=== PATIENT | male | born 1945 | race Caucasian/White ===

== ENCOUNTER 2022-01-30 17:34 | Emergency (ER) | payer OTHER, MEDICARE ==
[2022-01-30 17:41] VITALS: BP 160/89; PULSE 82; RESP 82; TEMP 97.8
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
[2022-01-30 18:17] LABS: Basophils # (A) 0.1 k/uL (0-0.2); Basophils % (A) 1 %; Eosinophils # (A) 0.4 k/uL (0-0.7); Eosinophils % (A) 4 %; HCT 45.5 % (39.0-53.0); Lymphocytes # (A) 1.6 k/uL (1.0-4.8); Lymphocytes % (A) 17 %; MCH 31.5 pg (25.0-35.0); MCHC 33.1 g/dL (31.0-37.0); MCV 95.2 fL (80.0-100.0); Monocytes # (A) 0.7 k/uL (0-1.0); Monocytes % (A) 8 %; Neutrophils # (A) 6.4 k/uL (1.3-7.7); Neutrophils % (A) 69 %; Platelet Count 251 k/uL (150-450); RBC 4.78 m/uL (4.30-5.90); WBC 9.4 k/uL (3.8-10.6)
[2022-01-30 18:28] LABS: ALT 24 U/L (4-49); AST 27 U/L (17-59); African American GFR (CKD) >90 (>60 ml/min/1.73 sqM); Albumin 4.4 g/dL (3.5-5.0); Alkaline Phosphatase 49 U/L (38-126); Anion Gap 8 mmol/L; Blood Urea Nitrogen 16 mg/dL (9-20); Calcium 9.3 mg/dL (8.4-10.2); Carbon Dioxide 25 mmol/L (22-30); Chloride 105 mmol/L (98-107); Glucose 127 mg/dL (74-99); Non-African American GFR(CKD) 79 (>60 ml/min/1.73 sqM); Potassium 3.9 mmol/L (3.5-5.1); Sodium 138 mmol/L (137-145); Total Bilirubin 0.7 mg/dL (0.2-1.3); Total Protein 6.9 g/dL (6.3-8.2)
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
[2022-01-30] MEDS ORDERED: KETOROLAC 15 MG/ML 1 ML VIAL IVP STA (18:50)
--- NOTE | 2022-01-30 19:22 | XR ---
EXAMINATION TYPE: XR chest 1V portable DATE OF EXAM: 01/30/2022 COMPARISON: NONE HISTORY: Pain TECHNIQUE: Single view FINDINGS: Heart is normal. Lungs are clear of consolidation. There are no hilar masses. Costophrenic angles are fairly clear. There is minimal pleural thickening lateral right lung base. Bony thorax arpit ears intact. IMPRESSION: No active cardiopulmonary disease. Minimal pleural scarring lateral right lung base
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
== END 2022-01-30 19:48 | disposition home or self-care (01) ==
LOC: EC 17:34
DX: M54.2 Cervicalgia (principal); M25.551 Pain in right hip; V43.52XA Car driver injured in collision with other type car in traffic accident, initial encounter; Y92.89 Other specified places as the place of occurrence of the external cause
CPT/HCPCS: 36415; 80053; 84484; 85025; 72170; 71045; 72125; 70450; 99284; 96374; J1885

== ENCOUNTER 2022-12-17 09:59 | Emergency (ER) | payer OTHER, MEDICARE ==
[2022-12-17] MEDS ORDERED: ACETAMINOPHEN TAB 500 MG TAB PO STA ×2 (10:36→11:00)
[2022-12-17] MEDS ORDERED: ONDANSETRON 4 MG/2 ML VIAL IVP STA (11:00)
[2022-12-17] MEDS ORDERED: diphenhydrAMINE 50 MG/ML 1 ML VIAL IVP STA (11:00)
[2022-12-17] MEDS ORDERED: SODIUM CHLORIDE 0.9% 1,000 ML IV STA (11:00)
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
[2022-12-17] MEDS ORDERED: ACET/COD 300 MG/30 MG STARTER PACK 6 TAB BTL PO STA (11:57)
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
[2022-12-17 13:02] VITALS: BP 155/87; PULSE 72; RESP 16; TEMP 97.9
== END 2022-12-17 13:02 | disposition home or self-care (01) ==
LOC: EC 09:59
DX: S09.90XA Unspecified injury of head, initial encounter (principal); G44.309 Post-traumatic headache, unspecified, not intractable; W22.09XA Striking against other stationary object, initial encounter
CPT/HCPCS: 99284 ×2; 96374 ×2; 96375 ×2; 96361 ×2; 70450; J1200; J2405

== ENCOUNTER 2023-12-12 15:39 | Observation (INO) | payer OTHER, MEDICARE ==
--- NOTE | 2023-12-12 16:03 | ED ---
Dizziness HPI - General Chief Complaint: Dizziness Stated Complaint: high b/p Time Seen by Provider: 12/12/23 15:53 Source: patient, RN notes reviewed, old records reviewed Mode of arrival: wheelchair Limitations: no limitations - History of Present Illness Initial Comments: This 78-year-old male to the ER for evaluation patient the [facility] for evaluation of dizziness significant dizziness for about a week room spinning lightheaded weak on his feet feels near syncopal with nausea vomiting. Patient was told aided in her ear infection a week ago started on antibiotics with no change MD Complaint: dizziness, lightheadedness, near syncope, other (He was get a pass out today) -: week(s) Timing: gradual onset Description: sense of movement, "room spinning", lightheadedness, nausea, near- syncope History of Same: No History of Trauma: No Severity: severe Improves With: nothing Worsens With: nothing Associated Symptoms: denies other symptoms - Related Data Home Medications Medication Instructions Recorded Confirmed Diclofenac Sodium [Voltaren] 50 mg PO HS 12/12/23 12/12/23 Meclizine [Antivert] 12.5 mg PO TID PRN 12/12/23 12/12/23 Simvastatin [Zocor] 20 mg PO HS 12/12/23 12/12/23 Timolol 0.5% Ophth Soln [Timoptic 1 drop LEFT EYE BID 12/12/23 12/12/23 0.5% Ophth Soln] predniSONE [Deltasone] 60 mg PO DAILY 12/12/23 12/12/23 Previous Rx's Medication Instructions Recorded Ibuprofen 800 mg PO Q8H PRN 10 Days #30 tab 01/30/22 Allergies Allergy/AdvReac Type Severity Reaction Status Date / Time No Known Allergies Allergy Verified 12/12/23 15:43 Review of Systems ROS Statement: Those systems with pertinent positive or pertinent negative responses have been documented in the HPI. ROS Other: All systems not noted in ROS Statement are negative. Past Medical History Past Medical History: Hyperlipidemia History of Any Multi-Drug Resistant Organisms: None Reported Past Surgical History: Hernia Repair, Orthopedic Surgery Past Psychological History: No Psychological Hx Reported Smoking Status: Never smoker Past Alcohol Use History: None Reported Past Drug Use History: None Reported General Exam - General Exam Comments Initial Comments: NIH of 0 Limitations: no limitations General appearance: alert, in no apparent distress Head exam: Present: atraumatic, normocephalic, normal inspection Eye exam: Present: normal appearance, PERRL, EOMI. Absent: scleral icterus, conjunctival injection, periorbital swelling ENT exam: Present: normal exam, mucous membranes moist Neck exam: Present: normal inspection. Absent: tenderness, meningismus, lymphadenopathy Respiratory exam: Present: normal lung sounds bilaterally. Absent: respiratory distress, wheezes, rales, rhonchi, stridor Cardiovascular Exam: Present: regular rate, normal rhythm, normal heart sounds. Absent: systolic murmur, diastolic murmur, rubs, gallop, clicks GI/Abdominal exam: Present: soft, normal bowel sounds. Absent: distended, tenderness, guarding, rebound, rigid Extremities exam: Present: normal inspection, full ROM, normal capillary refill. Absent: tenderness, pedal edema, joint swelling, calf tenderness Back exam: Present: normal inspection Neurological exam: Present: alert, oriented X3, CN II-XII intact Psychiatric exam: Present: normal affect, normal mood Skin exam: Present: warm, dry, intact, normal color. Absent: rash Course Vital Signs 12/12/23 12/12/23 12/12/23 15:41 15:51 15:56 Temperature 97.8 F Pulse Rate 73 90 77 Respiratory 18 20 16 Rate Blood Pressure 173/97 187/112 187/112 O2 Sat by Pulse 91 L 94 L 94 L Oximetry 12/12/23 12/12/23 12/12/23 16:43 17:00 17:24 Temperature Pulse Rate 82 68 80 Respiratory 20 16 20 Rate Blood Pressure 167/97 192/114 178/101 O2 Sat by Pulse 95 98 94 L Oximetry - Reevaluation(s) Reevaluation #1: 12/12/23 17:28 Record is reviewed Reevaluation #2: 12/12/23 17:28 Symptoms are unchanged Reevaluation #3: 12/12/23 17:28 Patient informed of results and questions answered Reevaluation #4: Was pt. sent in by a medical professional or institution (, PA, SUPERVISOR KNITTING, urgent care, hospital, or snf...) When possible be specific @ -no Did you speak to anyone other than the patient for history (EMS, parent, family, police, friend...)? What history was obtained from this source @ -no Did you review nursing and triage notes (agree or disagree)? Why? @ -agree Are old charts reviewed (outside hosp., previous admission, EMS record, old EKG, old radiological studies, urgent care reports/EKG's, snf records)? Report findings @ -yes Differential Diagnosis (chest pain, altered mental status, abdominal pain women, abdominal pain men, vaginal bleeding, weakness, fever, dyspnea, syncope, headache, dizziness, GI bleed, back pain, seizure, CVA, palpatations, mental health, musculoskeletal)? @ -prior EKG interpreted by me (3pts min.). @ -yes X-rays interpreted by me (1pt min.). @ -yes negative for acute disease CT interpreted by me (1pt min.). @ -no U/S interpreted by me (1pt. min.). @ -no What testing was considered but not performed or refused? (CT, X-rays, U/S, labs)? Why? @ -none What meds were considered but not given or refused? Why? @ -none Did you discuss the management of the patient with other professionals (tunde mendoza i.e. , PA, SUPERVISOR K[employer]ITTING, lab, RT, psych nurse, delinquency prevention social worker, e commerce architect, teacher, chief investment officer, supervisor case loading)? Give summary @ -no Was smoking cessation discussed for >3mins.? @ -no Was critical care preformed (if so, how long)? @ -no Were there social determinants of health that impacted care today? How? (Homelessness, low income, unemployed, alcoholism, drug addiction, transportation, low edu. Level, literacy, decrease access to med. care, long-term, rehab)? @ -none Was there de-escalation of care discussed even if they declined (Discuss DNR or withdrawal of care, Hospice)? DNR status @ -no What co-morbidities impacted this encounter? (DM, HTN, Smoking, COPD, CAD, Cancer, CVA, ARF, Chemo, Hep., AIDS, mental health diagnosis, sleep apnea, morbid obesity)? @ -none Was patient admitted / discharged? Hospital course, mention meds given and route, prescriptions, significant lab abnormalities, going to OR and other pertinent info. @ - Undiagnosed new problem with uncertain prognosis? @ -no Drug Therapy requiring intensive monitoring for toxicity (Heparin, Nitro, Insulin, Cardizem)? @ -no Were any procedures done? @ -no Diagnosis/symptom? @ - Acute, or Chronic, or Acute on Chronic? @ -Acute Uncomplicated (without systemic symptoms) or Complicated (systemic symptoms)? @ -Complicated Side effects of treatment? @ -no Exacerbation, Progression, or Severe Exacerbation? @ -exacerbation Poses a threat to life or bodily function? How? (Chest pain, USA, VT, pneumonia, PE, COPD, DKA, ARF, appy, cholecystitis, CVA, Diverticulitis, Homicidal, Suicidal, threat to staff... and all critical care pts) @ -yes Reevaluation #5: Differential CVA Ischemic stroke, hemorrhagic stroke, brain tumor, atypical migraine, Wernicke's encephalopathy, seizure, multiple sclerosis, meningitis, encephalitis, hypoglycemia, Guillain-Tejeda, electrolytes disturbance, myasthenia gravis.... This is not meant to be an all-inclusive list - Consultations Consultation #1: Spoke with sound who agrees to admit this patient EKG Findings - EKG Comments: EKG Findings:: EKG is sinus 87 OK 118 QRS 88 QTc 379 - EKG Results: EKG: interpreted by JOSÉ LUIS Medical Decision Making - Lab Data Result diagrams: 12/12/23 16:01 12/12/23 16:01 Lab Results 12/12/23 12/12/23 12/12/23 Range/Units 16:01 16:01 16:01 WBC 10.8 H (3.8-10.6) k/uL RBC 4.66 (4.30-5.90) m/uL Hgb 14.7 (13.0-17.5) gm/dL Hct 44.5 (39.0-53.0) % MCV 95.6 (80.0-100.0) fL MCH 31.5 (25.0-35.0) pg MCHC 33.0 (31.0-37.0) g/dL RDW 12.6 (11.5-15.5) % Plt Count 272 (150-450) k/uL MPV 7.2 Neutrophils % 84 % Lymphocytes % 10 % Monocytes % 4 % Eosinophils % 1 % Basophils % 0 % Neutrophils # 9.1 H (1.3-7.7) k/uL Lymphocytes # 1.0 (1.0-4.8) k/uL Monocytes # 0.5 (0-1.0) k/uL Eosinophils # 0.1 (0-0.7) k/uL Basophils # 0.0 (0-0.2) k/uL PT 10.5 (10.0-12.5) sec INR 1.0 (<1.2) APTT 20.4 L (22.0-30.0) sec Sodium 135 L (137-145) mmol/L Potassium 4.6 (3.5-5.1) mmol/L Chloride 105 (98-107) mmol/L Carbon Dioxide 24 (22-30) mmol/L Anion Gap 6 mmol/L BUN 22 H (9-20) mg/dL Creatinine 0.77 (0.66-1.25) mg/dL Est GFR (CKD-EPI)AfAm >90 (>60 ml/min/1.73 sqM) Est GFR (CKD-EPI)NonAf 86 (>60 ml/min/1.73 sqM) Glucose 145 H (74-99) mg/dL Plasma Lactic Acid Del (0.7-2.0) mmol/L Calcium 9.6 (8.4-10.2) mg/dL Phosphorus 3.5 (2.5-4.5) mg/dL Magnesium 2.0 (1.6-2.3) mg/dL Total Bilirubin 0.8 (0.2-1.3) mg/dL AST 25 (17-59) U/L ALT 31 (4-49) U/L Alkaline Phosphatase 54 (38-126) U/L Troponin I (0.000-0.034) ng/mL Total Protein 6.7 (6.3-8.2) g/dL Albumin 4.3 (3.5-5.0) g/dL 12/12/23 12/12/23 Range/Units 16:01 16:01 WBC (3.8-10.6) k/uL RBC (4.30-5.90) m/uL Hgb (13.0-17.5) gm/dL Hct (39.0-53.0) % MCV (80.0-100.0) fL MCH (25.0-35.0) pg MCHC (31.0-37.0) g/dL RDW (11.5-15.5) % Plt Count (150-450) k/uL MPV Neutrophils % % Lymphocytes % % Monocytes % % Eosinophils % % Basophils % % Neutrophils # (1.3-7.7) k/uL Lymphocytes # (1.0-4.8) k/uL Monocytes # (0-1.0) k/uL Eosinophils # (0-0.7) k/uL Basophils # (0-0.2) k/uL PT (10.0-12.5) sec INR (<1.2) APTT (22.0-30.0) sec Sodium (137-145) mmol/L Potassium (3.5-5.1) mmol/L Chloride (98-107) mmol/L Carbon Dioxide (22-30) mmol/L Anion Gap mmol/L BUN (9-20) mg/dL Creatinine (0.66-1.25) mg/dL Est GFR (CKD-EPI)AfAm (>60 ml/min/1.73 sqM) Est GFR (CKD-EPI)NonAf (>60 ml/min/1.73 sqM) Glucose (74-99) mg/dL Plasma Lactic Acid Del 1.6 (0.7-2.0) mmol/L Calcium (8.4-10.2) mg/dL Phosphorus (2.5-4.5) mg/dL Magnesium (1.6-2.3) mg/dL Total Bilirubin (0.2-1.3) mg/dL AST (17-59) U/L ALT (4-49) U/L Alkaline Phosphatase (38-126) U/L Troponin I <0.012 (0.000-0.034) ng/mL Total Protein (6.3-8.2) g/dL Albumin (3.5-5.0) g/dL Critical Care Time Critical Care Time: Yes Total Critical Care Time: 31 Disposition Clinical Impression: Dehydration, Dizziness, Weakness, Hypertension, CVA (cerebral vascular accident), Hypertensive emergency Disposition: ADMITTED IP TO THIS HOSP Condition: Fair Referrals: [facility],Clinic [Primary Care Provider] - 1-2 days Time of Disposition: 17:30
[2023-12-12] MEDS: SODIUM CHLORIDE 0.9% 1,000 ML IV STA (16:05)
[2023-12-12 16:17] LABS: Basophils % (A) 0 %; Eosinophils # (A) 0.1 k/uL (0-0.7); Eosinophils % (A) 1 %; HCT 44.5 % (39.0-53.0); HGB 14.7 gm/dL (13.0-17.5); Lymphocytes % (A) 10 %; MCH 31.5 pg (25.0-35.0); MCV 95.6 fL (80.0-100.0); Mean Platelet Volume 7.2; Monocytes # (A) 0.5 k/uL (0-1.0); Monocytes % (A) 4 %; Neutrophils # (A) 9.1 k/uL (1.3-7.7); Neutrophils % (A) 84 %; Platelet Count 272 k/uL (150-450); RBC 4.66 m/uL (4.30-5.90); RDW 12.6 % (11.5-15.5); WBC 10.8 k/uL (3.8-10.6)
[2023-12-12 16:28] LABS: ALT 31 U/L (4-49); AST 25 U/L (17-59); African American GFR (CKD) >90 (>60 ml/min/1.73 sqM); Albumin 4.3 g/dL (3.5-5.0); Alkaline Phosphatase 54 U/L (38-126); Anion Gap 6 mmol/L; Blood Urea Nitrogen 22 mg/dL (9-20); Calcium 9.6 mg/dL (8.4-10.2); Carbon Dioxide 24 mmol/L (22-30); Chloride 105 mmol/L (98-107); Glucose 145 mg/dL (74-99); Non-African American GFR(CKD) 86 (>60 ml/min/1.73 sqM); Phosphorus 3.5 mg/dL (2.5-4.5); Potassium 4.6 mmol/L (3.5-5.1); Sodium 135 mmol/L (137-145); Total Bilirubin 0.8 mg/dL (0.2-1.3); Total Protein 6.7 g/dL (6.3-8.2)
[2023-12-12 16:40] LABS: Prothrombin Time 10.5 sec (10.0-12.5)
[2023-12-12 16:46] LABS: Partial Thromboplastin Time 20.4 sec (22.0-30.0)
--- NOTE | 2023-12-12 17:23 | CT ---
EXAMINATION TYPE: CT brain wo con DATE OF EXAM: 12/12/2023 HISTORY: htn, dizziness CT DLP: 1146.6 mGycm. Automated Exposure Control for Dose Reduction was Utilized. TECHNIQUE: CT scan of the head is performed without contrast. COMPARISON: CT 12/17/2022 FINDINGS: There is no skull fracture or intracranial hemorrhage. No mass or mass effect or definite new attenua tion defect. No acute extra-axial findings. 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 Paranasal sinuses and middle ear cavities and mastoid sinus air cells are clear. Orbits are unremarkable. IMPRESSION: No acute process.
[2023-12-12] MEDS: ASPIRIN 325 MG TAB PO STA (17:38)
[2023-12-12] MEDS: SODIUM CHLORIDE 0.9% 1,000 ML IV SCH (17:38)
--- NOTE | 2023-12-12 18:03 | CT ---
EXAMINATION TYPE: CT angio head neck DATE OF EXAM: 12/12/2023 HISTORY: htn, dizziness COMPARISON: CT brain without contrast 12/12/2023 CT DLP: 397.5 mGycm. Automated Exposure Control for Dose Reduction was Utilized. TECHNIQUE: CTA scan of the head and neck is performed without and with IV Contrast, patient injected with 65cc mL of Isovue 370, axial images are obtained, coronal and sagittal reformatted images are r eviewed. 3D reconstructed images are created on an independent workstation and reviewed. FINDINGS: CTA NECK: The bilateral carotid and vertebral are serial systems are widely patent without hemodynami shivani significant stenosis, or dissection. Dolichoectasia of the posterior arterial circulation is re demonstrated. Venous structures are widely patent. No nonvascular acute incidental findings, but mult ilevel advanced cervical spondylosis changes are noted. CTA BRAIN: The anterior and posterior arterial circulations are widely patent. There is no hemodynami shivani significance stenosis, aneurysm, dissection, or other abnormality. Dural venous sinuses are wid jennifer patent. No nonvascular acute incidental findings. IMPRESSION: No significant vascular abnormality is seen. NASCET criteria was used in interpretation of this exam?
[2023-12-12 18:06] LABS: Appearance,Urine Clear (Clear); Bilirubin,Urine Negative (Negative); Blood,Urine Negative (Negative); Color,Urine Colorless; Glucose,Urine (UA) Negative (Negative); Ketones,Urine Negative (Negative); Leukocyte Esterase,Urine Negative (Negative); Nitrite,Urine Negative (Negative); PH, Urine 7.5 (5.0-8.0); Protein,Urine Negative (Negative); Specific Gravity,Urine 1.017 (1.001-1.035); Urobilinogen,Urine <2.0 mg/dL (<2.0)
[2023-12-12] MEDS: LABETALOL 5 MG/ML VIAL MDV IVP STA ×2 (18:20→20:47)
[2023-12-13] MEDS ORDERED: MECLIZINE 12.5 MG TAB PO PRN (04:05)
--- NOTE | 2023-12-13 04:31 | P.HPIM ---
History of Present Illness H&P Date: 12/12/23 Chief Complaint: Dizziness 78-year-old male with hyperlipidemia Patient coming in for evaluation of near syncope increased dizziness lightheadedness and vertigo he reports that he has been told possible Mnire's disease in the past, however today his symptoms were getting worse associated with nausea vomiting he checked his blood pressure and found it elevated in the 200 range systolic blood pressure with some numbness in his right hand for which she decided to come in for evaluation He denies any headache chest pain trouble breathing fevers chills coughing sore throat denies any history of stroke denies any history of seizures Patient denies tobacco smoking illicit drugs or heavy alcohol review of systems Pertinent positives as noted in HPI. All other systems were reviewed and are negative on exam Constitutional: No acute distress, conversant, pleasant Eyes: Anicteric sclerae, moist conjunctiva, Pupils equal round reactive to light ENMT: NC/AT Oropharynx clear, no erythema, or exudates Neck: Supple, no masses, or JVD No carotid bruits No thyromegaly Lungs: Clear to auscultation Clear to percussion Normal respiratory effort, no accessory muscle use Cardiovascular: Heart regular in rate and rhythm, No murmurs, gallops, or rubs No peripheral edema Abdominal: Soft Nontender, no guarding, rebound or rigidity Abdomen moving with respiration Normoactive bowel sounds Extremities: No digital cyanosis No clubbing Pedal pulses intact and symmetrical Radial pulses intact and symmetrical No calf tenderness Psychiatric: Alert and oriented to person, place and time Appropriate affect fair judgement Neuro Muscles Strength 5/5 in all 4 extremities Sensation to light touch grossly present throughout Cranial nerves II-XII grossly intact finger-nose exam intact Past Medical History Past Medical History: Hyperlipidemia History of Any Multi-Drug Resistant Organisms: None Reported Past Surgical History: Hernia Repair, Orthopedic Surgery Past Psychological History: No Psychological Hx Reported Smoking Status: Never smoker Past Alcohol Use History: None Reported Past Drug Use History: None Reported Medications and Allergies Home Medications Medication Instructions Recorded Confirmed Type Ibuprofen 800 mg PO Q8H PRN 10 Days #30 tab 01/30/22 12/12/23 Rx Diclofenac Sodium [Voltaren] 50 mg PO HS 12/12/23 12/12/23 History Meclizine [Antivert] 12.5 mg PO TID PRN 12/12/23 12/12/23 History Simvastatin [Zocor] 20 mg PO HS 12/12/23 12/12/23 History Timolol 0.5% Ophth Soln [Timoptic 1 drop LEFT EYE BID 12/12/23 12/12/23 History 0.5% Ophth Soln] predniSONE [Deltasone] 60 mg PO DAILY 12/12/23 12/12/23 History Allergies Allergy/AdvReac Type Severity Reaction Status Date / Time No Known Allergies Allergy Verified 12/12/23 15:43 Physical Exam Vitals: Vital Signs Temp Pulse Resp BP Pulse Ox 12/12/23 20:30 80 18 212/121 94 L 12/12/23 18:00 75 20 189/116 98 12/12/23 17:24 80 20 178/101 94 L 12/12/23 17:00 68 16 192/114 98 12/12/23 16:43 82 20 167/97 95 12/12/23 15:56 77 16 187/112 94 L 12/12/23 15:51 90 20 187/112 94 L 12/12/23 15:41 97.8 F 73 18 173/97 91 L Intake and Output 12/12/23 12/12/23 12/13/23 14:59 22:59 06:59 Other: Weight 72.575 kg Results CBC & Chem 7: 12/12/23 16:01 12/12/23 16:01 Labs: Abnormal Lab Results - Last 24 Hours (Table) 12/12/23 12/12/23 12/12/23 Range/Units 16:01 16:01 16:01 WBC 10.8 H (3.8-10.6) k/uL Neutrophils # 9.1 H (1.3-7.7) k/uL APTT 20.4 L (22.0-30.0) sec Sodium 135 L (137-145) mmol/L BUN 22 H (9-20) mg/dL Glucose 145 H (74-99) mg/dL Assessment and Plan Assessment: 78 year old male with hyperlipidemia , coming in for vertigo , dizziness, and nausea and vomiting , along with right hand numbness, I discussed the case with ED doc and I accepted the admission for possible TIA with anticipated length of stay < 2 midnights possible TIA h/o Mnire disease CT brain no acute intracranial pathology CTA head and neck no acute findings neuro checks neuro consult MRI fo the brain symptomatic control of vertigo with PRN meclizine continue Aspirin and statin Blood work showing white count 12.8 hemoglobin 14.7 BUN 22 creatinine 0.7 Troponins negative EKG normal sinus rhythm full code DVT ppx heparin sc tid
[2023-12-13] MEDS: HEPARIN SODIUM,PORCINE 5,000 UNIT/ML 1 ML VIAL SQ SCH (08:45)
[2023-12-13 09:04] LABS: Chol/HDL Ratio 2.53 Ratio; LDL Cholesterol,Calculated 101.5 mg/dL (0.0-131.0); VLDL Calculation 11.74 mg/dL (5.00-40.00)
[2023-12-13] MEDS: MECLIZINE 12.5 MG TAB PO SCH (09:11)
[2023-12-13] MEDS: ASPIRIN 325 MG TAB PO SCH (09:12)
[2023-12-13] MEDS: amLODIPine 5 MG TAB PO SCH (09:12)
--- NOTE | 2023-12-13 11:26 | P.PN ---
Subjective Progress Note Date: 12/13/23 Hospital course: Patient is a very pleasant 78-year-old male with past medical history of hyperlipidemia and Mnire's disease. He presented to the emergency department on 12/12/2023 with a chief complaint of dizziness and near syncopal episode. Upon arrival to our facility, patient underwent evaluation in the emergency department. Vital signs upon arrival show blood pressure 173/97, heart rate 73, respiratory rate 18, and temp 97.8 F. Blood pressure elevated as high as 212/121 requiring IV administration of labetalol x 2 doses. EKG completed showing normal sinus rhythm at [address] head then completed negative for acute intracranial process. CTA head and neck completed negative for acute intracranial process. Labs completed and reviewed. CBC showing leukocytosis with WBC count of 10.8. Coagulation profile showed a low PTT of 20.4. BMP jeff wing mild mild prerenal azotemia with BUN of 22 otherwise normal findings. Blood glucose 145. Lactic acid was 1.6. Magnesium was 2.0. Liver profile unremarkable. Troponin was negative at less than 0.012. Patient was admitted under our services with consultation to neurology. Troponins trended overnight all negative at less than 0.012 x 3 draws. Physical exam: Patient was seen and fully evaluated at bedside this morning. He reports dizziness is slightly improved and currently denies having any headache, changes in vision, dysphagia, cough or congestion, chest pain, palpitations, shortness of breath, or experiencing any numbness/tingling/weakness in his extremities. Vital signs reviewed and stable. General: Nontoxic, no distress and appears stated age. Derm: Skin warm and dry, normal coloration for ethnicity. Head: Atraumatic, normocephalic and symmetric. Eyes: EOMs intact, no lid lag, and anicteric sclera Mouth: no lip lesions, mucus membranes moist Cardiovascular: regular rate and rhythm with normal S1S2, no murmur, positive posterior tibial pulses bilaterally, and cap refill < 2 seconds. Lungs: Respirations even, regular, and unlabored on room air. Lungs CTA bilaterally, no rhonchi, no rales, no wheezing, and no accessory muscle usage. Abdominal: soft, nontender to palpation, no guarding, no appreciable organomegal y Ext: ROM intact. No gross muscle atrophy, no edema, no contractures Neuro: Speech clear, face symmetrical and CN II-XII grossly intact with no noted focal neuro deficits Psych: Alert and oriented to person, place, time, and situation. Appropriate and pleasant affect. Assessment and Plan of Care: Near syncope with dizziness Hypertensive urgency Rule out TIA History of Mnire's disease and recent ear infection with hearing loss to left ear -Consult neurology, appreciate recommendations -MRI brain with without contrast was ordered and pending completion -Echocardiogram was ordered and pending completion -Neuro checks every 4 hours and as needed -Daily aspirin and atorvastatin. -PT/OT consult -Fall precautions and provide pt with assistance as needed -Overnight, Blood pressure elevated as high as 212/121 requiring IV a dministration of labetalol x 2 doses. Patient started on amlodipine 5 mg daily this morning. Currently blood pressure is more controlled at 164/94 with heart rate of 72. Data and imaging reviewed: CT head negative for acute intracranial process. CTA head and neck completed negative for acute intracranial process. Labs reviewed. CBC showing leukocytosis with WBC count of 10.8. Coagulation profile showed a low PTT of 20.4. BMP showing mild mild prerenal azotemia with BUN of 22 otherwise normal findings. Blood glucose 145. Lactic acid was 1.6. Magnesium was 2.0. Liver profile unremarkable. Troponins trended overnight all negative at less than 0.012 x 3 draws. Lipid profile unremarkable. Vital signs reviewed. Blood pressure 164/94, heart rate 72, respiratory rate 18, temp 97.5 F, and SpO2 of 95% on room air. CODE STATUS: Full code DVT prophylaxis: Heparin Anticipated discharge date: 24 to [address]: Home Patient was seen independently by Nurse Pracitioner. This document was prepared using Int[employer] dictation software. Please allow for errors in emergency department coordinator, while rare they do occur. I reviewed the documentation as provided by the KAROLINE above, who is the original author of this note. I agree with the documented assessment and plan, with the following changes: none Objective - Vital Signs Vital signs: Vital Signs Temp 97.5 F L 12/13/23 04:45 Pulse 87 12/13/23 06:00 Resp 18 12/13/23 06:00 BP 160/99 12/13/23 06:00 Pulse Ox 95 12/13/23 06:00 FiO2 Intake & Output 12/12/23 12/13/23 12/13/23 18:59 06:59 18:59 Weight 72.575 kg - Labs CBC & Chem 7: 12/12/23 16:01 12/12/23 16:01 Labs: Abnormal Lab Results - Last 24 Hours (Table) 12/12/23 12/12/23 12/12/23 Range/Units 16:01 16:01 16:01 WBC 10.8 H (3.8-10.6) k/uL Neutrophils # 9.1 H (1.3-7.7) k/uL APTT 20.4 L (22.0-30.0) sec Sodium 135 L (137-145) mmol/L BUN 22 H (9-20) mg/dL Glucose 145 H (74-99) mg/dL
[2023-12-13] MEDS: TIMOLOL 0.5% OPHTH DROPS 5 ML BTL LEFT EYE SCH (12:09)
--- NOTE | 2023-12-13 19:52 | CA ---
Transthoracic Echo Report Name: Lucas Harmon Age: 78 Gender: M : 1945 Exam Date: 12/13/2023 14:51 Exam Location: [facility] Ht (in): 70 Wt (lb): 160 Ordering Physician: Christiano Ferreira DO Attending/Referring Phys: [id number], [employer] [employer] Account Manager Divine Carcamo RDCS Procedure CPT: Indications: Thrombus Cardiac Hx: Technical Quality: Good Contrast 1: Total Dose (mL): Contrast 2: Total Dose (mL): MEASUREMENTS (Male / Female) Normal Values 2D ECHO LV Diastolic Diameter PLAX 4.4 cm 4.2 - 5.9 / 3.9 - 5.3 cm LV Systolic Diameter PLAX 3.2 cm IVS Diastolic Thickness 1.3 cm 0.6 - 1.0 / 0.6 - 0.9 cm LVPW Diastolic Thickness 1.2 cm 0.6 - 1.0 / 0.6 - 0.9 cm LV Relative Wall Thickness 0.6 RV Internal Dim ED PLAX 2.8 cm LVOT Diameter 2.1 cm LV Diastolic Volume MOD BP 111.7 cm??? 67 - 155 / 56 - 104 cm??? LV Systolic Volume MOD BP 45.6 cm??? 22 - 58 / 19 - 49 cm??? LV Ejection Fraction MOD BP 59.2 % >= 55 % LV Cardiac Index MOD BP 2685.1 cm???/min???m??? LV Diastolic Volume MOD 4C 108.2 cm??? LV Systolic Volume MOD 4C 51.8 cm??? LV Ejection Fraction MOD 4C 52.2 % LV Cardiac Index MOD 4C 2293.8 cm???/min???m??? LV Diastolic Length 4C 8.2 cm LV Systolic Length 4C 7.2 cm LV Diastolic Volume MOD 2C 109.0 cm??? LV Systolic Volume MOD 2C 38.5 cm??? LV Ejection Fraction MOD 2C 64.7 % LV Cardiac Index MOD 2C 2865.9 cm???/min???m??? LV Diastolic Length 2C 8.7 cm LV Systolic Length 2C 7.6 cm LA Volume 60.8 cm??? 18 - 58 / 22 - 52 cm??? LA Volume Index 32.1 cm???/m??? 16 - 28 cm???/m??? Ascending Aorta Diameter 3.8 cm M-MODE LV Diastolic Diameter MM 4.7 cm 4.2 - 5.9 / 3.9 - 5.3 cm LV Systolic Diameter MM 3.2 cm LV Cardiac Index MM Teich 2471.8 cm???/min???m??? IVS Diastolic Thickness MM 1.5 cm 0.6 - 1.0 / 0.6 - 0.9 cm LVPW Diastolic Thickness MM 1.2 cm 0.6 - 1.0 / 0.6 - 0.9 cm LV Relative Wall Thickness MM 0.6 0.24 - 0.42 / 0.22 - 0.42 LV Mass Index MM 132.5 g/m??? 49 - 115 / 43 - 95 g/m??? DOPPLER AV Peak Velocity 117.5 cm/s AV Peak Gradient 5.5 mmHg AV Mean Velocity 78.2 cm/s AV Mean Gradient 2.8 mmHg AV Velocity Time Integral 22.5 cm LVOT Peak Velocity 90.6 cm/s LVOT Peak Gradient 3.3 mmHg LVOT Velocity Time Integral 16.8 cm LVOT Stroke Volume 56.3 cm??? LVOT Stroke Volume Index 29.6 ml/m??? LVOT Cardiac Index 2286.0 cm???/min???m??? AV Area Cont Eq vti 2.5 cm??? AV Area Cont Eq pk 2.6 cm??? MV Area PHT 4.0 cm??? Mitral E Point Velocity 71.6 cm/s Mitral A Point Velocity 80.8 cm/s Mitral E to A Ratio 0.9 MV Deceleration Time 187.4 ms TR Peak Velocity 201.9 cm/s TR Peak Gradient 16.3 mmHg Right Atrial Pressure 5.0 mmHg Pulmonary Artery Systolic Pressu 21.3 mmHg Right Ventricular Systolic Press 21.3 mmHg PV Peak Velocity 99.7 cm/s PV Peak Gradient 4.0 mmHg FINDINGS Left Ventricle Left ventricular ejection fraction is estimated at 55-60 %. Mildly increased left ventricular mass. Mildly increased septal wall thickness. Mildly increased posterior wall thickness. No obvious regional wall motion abnormalities. Left ventricular cavity size normal. Right Ventricle Normal right ventricular size and function. Right ventricular systolic pressure within normal limits. Right Atrium Normal right atrial size. Left Atrium Mildly increased left atrial volume. Mitral Valve Mitral valve thickened. No evidence for mitral valve prolapse. No mitral stenosis. Trace mitral regurgitation. Aortic Valve Trileaflet aortic valve. No aortic stenosis. Trace aortic regurgitation. Tricuspid Valve Structurally normal tricuspid valve. No tricuspid stenosis. Trace to mild tricuspid regurgitation. Pulmonic Valve Structurally normal pulmonic valve. No pulmonic stenosis. Trace pulmonic regurgitation. Pericardium No pericardial effusion. Aorta Normal size aortic root and proximal ascending aorta. CONCLUSIONS Left ventricular ejection fraction is estimated at 55-60 %. No obvious regional wall motion abnormalities. No significant valvular disease No pericardial effusion. Previewed by: Dr Ronnell Foreman (Electronically Signed) Final Date: 13 December 2023 19:52
--- NOTE | 2023-12-13 20:06 | P.CNNES ---
History of Present Illness Consult date: 12/13/23 Requesting physician: Christiano Ferreira Reason for Consult: Vertigo History of Present Illness: Patient is a 78-year-old right-handed male with history of Mnire's disease, otherwise healthy, came to the hospital yesterday at 3:39 PM for vertigo and some strokelike symptoms. Patient was diagnosed with Mnire's disease about few years ago. He underwent placement of a tube in the left ear 2 years ago and his symptoms of Mnire's disease improved a lot. In the last year, he had about 3 episodes of minor flareup, which lasted for only couple hours and resolved with meclizine. He does have chronic tinnitus. Patient apparently lost hearing left ear in the last couple weeks. He was seen by ENT Dr. Michel, 6 days ago, who felt patient has a flareup of Mnire's disease. He was started on prednisone 60 mg daily and today is a day #6. When he was seen by ENT specialist, patient's blood pressure was noted to be high, around 170 systolic. Patient is very health-conscious, and then he started checking his blood pressure 5 times a day since then. About two thirds of the time, the blood pressure was running around systolic 130, only few readings were high around 170s. Patient states that yesterday at around noon, he was just staying on the board, standing, when he developed vertigo, dizziness, nausea. He also started having cold sweats. About 10 minutes later, he developed a headache between his eyes. There was no slurred speech or facial droop or any focal weakness. He did com plain of blurred vision but attributed to the vertigo. His family brought him to the hospital. While he was on the way to the hospital, he also noticed numbness of the right hand and fingers all the way to the elbow. Vital signs on arrival blood pressure 173/97, which came up to 187/112, pulse ra te 73 temperature 97.8. Blood test shows normal WBC 10.8, hemoglobin 14.7 and platelets 272. PT PTT normal. Sodium 135 potassium 4.6, BUN 22, creatinine 0.77. Hepatic panel is normal. Lactate normal 1.6 troponin negative. UA negative. Cholesterol 187, LDL 101, HDL 73 and triglycerides 58. EKG showed sinus rhythm with short MS interval. CT head revealed no acute process. Paranasal sinuses are clear. I personally reviewed CT head and agree with the findings. CTA of head and neck were normal. Home medications include simvastatin 20 mg, prednisone 60 mg daily, meclizine 12.5 mg and ibuprofen. Patient states the numbness of the right hand lasted all night long. Still sl ightly numb. Patient states that he has history of 3 surgeries over the right forearm region in around 1997 after he had suffered from a fracture. He frequently gets numbness of the right hand and distal forearm region, very frequently, but never extended all the way to the elbow, like it happened last night. Patient used to be on aspirin, which she stopped taking 1 year ago because of frequent bruising. Patient has smoked 1 pack/day for 10 years, quit in 1972. He drinks alcohol very very occasionally. Patient walks 5 miles per day. He has history of prediabetes, and used to have hemoglobin A1c around 6.1, but most recent in September 2023 was 5.6. He gets his health [facility] at [facility]. Review of Systems Constitutional: Reports sweats, Denies chills, Denies fever Eyes: bilateral blurred vision (yesterday with Vertgo), denies diplopia, denies pain, denies loss of vision Ears: left: decreased hearing, bilateral: tinnitus, deny: ear discharge, earache Ears, nose, mouth and throat: Reports headache (Gone now 0/10 after they gave ASA), Reports vertigo, Denies sore throat Cardiovascular: Reports lightheadedness, Denies chest pain, Denies shortness of breath Respiratory: Denies cough, Denies excessive sputum Gastrointestinal: Reports nausea, Denies abdominal pain, Denies constipation, D enies diarrhea, Denies vomiting Genitourinary: Reports nocturia Musculoskeletal: Denies low back pain, Denies myalgias, Denies neck pain Integumentary: Denies pruritus, Denies rash Neurological: Reports as per HPI Psychiatric: Denies anxiety, Denies depression Hematologic/Lymphatic: Reports easy bruising, Denies easy bleeding Past Medical History Past Medical History: Hyperlipidemia History of Any Multi-Drug Resistant Organisms: None Reported Past Surgical History: Hernia Repair, Orthopedic Surgery Past Psychological History: No Psychological Hx Reported Smoking Status: Never smoker Past Alcohol Use History: None Reported Past Drug Use History: None Reported - Past Family History Father Family Medical History: CVA/TIA Mother Family Medical History: Congestive Heart Failure (CHF) Medications and Allergies Home Medications Medication Instructions Recorded Confirmed Type Ibuprofen 800 mg PO Q8H PRN 10 Days #30 tab 01/30/22 12/12/23 Rx Diclofenac Sodium [Voltaren] 50 mg PO HS 12/12/23 12/12/23 History Meclizine [Antivert] 12.5 mg PO TID PRN 12/12/23 12/12/23 History Simvastatin [Zocor] 20 mg PO HS 12/12/23 12/12/23 History Timolol 0.5% Ophth Soln [Timoptic 1 drop LEFT EYE BID 12/12/23 12/12/23 History 0.5% Ophth Soln] predniSONE [Deltasone] 60 mg PO DAILY 12/12/23 12/12/23 History Allergies Allergy/AdvReac Type Severity Reaction Status Date / Time No Known Allergies Allergy Verified 12/12/23 15:43 Physical Examination - Vital Signs Vital Signs: Vital Signs Temp Pulse Pulse Resp BP BP Pulse Ox 12/13/23 16:46 97.9 F 78 20 177/91 95 12/13/23 16:01 61 18 153/93 95 12/13/23 12:00 68 18 179/105 95 12/13/23 09:00 72 18 164/94 95 12/13/23 06:00 87 18 160/99 95 12/13/23 04:45 97.5 F L 82 16 160/97 93 L 12/13/23 03:01 87 155/94 95 12/12/23 20:30 80 18 212/121 94 L 12/12/23 18:00 75 20 189/116 98 12/12/23 17:24 80 20 178/101 94 L Intake and Output 12/13/23 12/13/23 12/13/23 06:59 14:59 22:59 Other: Voiding Method Toilet Patient is an elderly male, in no acute distress. Patient is alert awake oriented to time place and person. Speech and language functions are normal. Patient can name and repeat very well. No aphasia or dysarthria. Attention, concentration and fund of knowledge is adequate. On cranial nerve examination, pupils are equal, round and reacting to light, visual guillory are full on confrontation, with no neglect on double simultaneous stimulation. Extraocular muscles are intact with no nystagmus. Patient has slight droopiness of right upper lip, but family believes that it is baseline. His tongue protrudes to the midline. Palatal elevation and sensation normal, hearing is significantly decreased particularly in the left and shoulder shrug normal, facial sensation normal. On muscle strength testing, there is no pronator drift and the strength is normal in arms and legs distally and proximally. Deep tendon reflexes are symmetric 2+ all over and plantars downgoing. Sensory to touch is equal with no neglect on double simultaneous stimulation. Cerebellar function showed no ataxia for [id number] testing. No dysdiadochokinesia. No ataxia for [id number]-wpwr testing on either side. Tone and bulk of muscles normal. Gait deferred.. On general examination, there is no carotid bruit or murmur, S1-S2 audible. Chest is clear on consultation. Abdomen is soft nontender. No organomegaly, bowel sounds present. Peripheral pulses are present. No peripheral edema. Results - Laboratory Findings CBC and BMP: 12/12/23 16:01 12/12/23 16:01 Abnormal Lab Findings: Abnormal Labs 12/12/23 12/12/23 12/12/23 16:01 16:01 16:01 WBC 10.8 H Neutrophils # 9.1 H APTT 20.4 L Sodium 135 L BUN 22 H Glucose 145 H HDL Cholesterol 12/12/23 16:01 WBC Neutrophils # APTT Sodium BUN Glucose HDL Cholesterol 73.80 H Assessment and Plan Assessment: * 78-year-old male with history of Mnire's disease, presented with an episode of vertigo, cold sweats, imbalance and right hand and forearm numbness. Patient has history of baseline intermittent numbness of the right hand and distal forearm since he had undergone multiple forearm surgery in around 1997, but the numbness was more than usual, extending to the elbow. Rule out stroke/TIA. * Mnire's disease * Hypertension, recent onset * Hyperlipidemia * History of prediabetes Plan: MRI of the brain without contrast, evaluate for acute CVA 2-D echo revealed normal left ventricular EF 55 to 60%. Mildly increased left ventricular mass. Mildly increased septal wall thickness. Mildly increased posterior wall thickness. No obvious regional wall motion abnormalities. Mildly increased left atrial volume. No significant valvular disease. CTA head and neck showed: No significant vascular abnormality. Fasting a.m. lipid panel with cholesterol 187, LDL 101, HDL 73, triglycerides 58. Patient was taking Zocor 20 mg daily at home. If any evidence of CVA, recommend increasing the dose of baseline statins. Hemoglobin A1c, B12, folate, TSH. Permissive hypertension for next 24-48 hours Start aspirin 325 mg daily. Patient has stopped taking aspirin about a year ago. Neuro checks every 2 hours. Telemetry monitoring rule out any arrhythmia PT, OT, speech therapy DVT prophylaxis: Heparin 5000 units subcu every [address] Graham will cover neurology service over the weekend. Thank you for the consult.
[2023-12-13] MEDS: ATORVASTATIN 10 MG TAB PO SCH (20:25)
[2023-12-13 21:50] VITALS: RESP 18
[2023-12-14 07:59] VITALS: TEMP 97.7
[2023-12-14 10:28] LABS: HCT 49.8 % (39.0-53.0); HGB 15.7 gm/dL (13.0-17.5); MCH 30.4 pg (25.0-35.0); MCHC 31.6 g/dL (31.0-37.0); MCV 96.3 fL (80.0-100.0); Mean Platelet Volume 7.4; Platelet Count 287 k/uL (150-450); RBC 5.17 m/uL (4.30-5.90); WBC 10.4 k/uL (3.8-10.6)
--- NOTE | 2023-12-14 10:39 | P.PN ---
Subjective Progress Note Date: 12/14/23 Hospital Course: Patient is a very pleasant 78-year-old male with past medical history of hyper lipidemia and Mnire's disease. He presented to the emergency department on 12/12/2023 with a chief complaint of dizziness and near syncopal episode. Upon arrival to our facility, patient underwent evaluation in the emergency department. Vital signs upon arrival show blood pressure 173/97, heart rate 73, respiratory rate 18, and temp 97.8 F. Blood pressure elevated as high as 212/121 requiring IV administration of labetalol x 2 doses. EKG completed showing normal sinus rhythm at [address] head then completed negative for acute intracranial process. CTA head and neck completed negative for acute intracranial process. Labs completed and reviewed. CBC showing leukocytosis with WBC count of 10.8. Coagulation profile showed a low PTT of 20.4. BMP showing mild mild prerenal azotemia with BUN of 22 otherwise normal findings. Blood glucose 145. Lactic acid was 1.6. Magnesium was 2.0. Liver profile unremarkable. Troponin was negative at less than 0.012. Patient was admitted under our services with consultation to neurology. Troponins trended overnight all negative at less than 0.012 x 3 draws. Echocardiogram showed LVEF 55 to 60%, no regional wall motion abnormalities. MRI brain pending. Subjective: Patient seen and examined at bedside. No acute events overnight. Still having numbness tingling in his right hand. Denies any vertigo symptoms. Denies any headaches. Does have urinary retention and difficulty emptying bladder. Pertinent positives and negatives as discussed above, a complete review of systems was performed and all other systems are negative. Vitals Signs Reviewed. General: Nontoxic, no distress, appears at stated age Derm: Warm, dry Head: Atraumatic, normocephalic, symmetric Eyes: EOMI, no lid lag, anicteric sclera Mouth: No lip lesion, mucus membranes moist Cardiovascular: S1S2 reg, no murmur Lungs: CTA bilateral, no rhonchi, no rales, no accessory muscle use Abdominal: Soft, nontender to palpation, no guarding, no appreciable o rganomegaly Ext: No gross muscle atrophy, no edema, no contractures Neuro: CN II-XI grossly intact, no focal neuro deficits Psych: Alert, oriented, appropriate affect Data Reviewed Today: Pertinent Labs: WBC 10.4, BMP, folic acid, A1c, B12, TSH pending, will be reviewed when available Imaging: Echocardiogram shows LVEF 55 to 60% Assessment and Plan: Worsening right arm numbness, rule out CVA History of Mnire's disease History of tinnitus Hypertensive urgency -MRI brain pending, to be completed today, will be reviewed when available -Continue neurochecks, and telemetry -Continue aspirin 81 mg daily, atorvastatin 10 mg nightly -Started on amlodipine 5 mg daily, lisinopril 10 mg daily -Neurology following -Continue meclizine 12.5 mg 3 times daily, patient was recently given steroids outpatient Urinary retention Suspected BPH -Started on tamsulosin 0.4 mg daily DVT ppx: Subcu heparin Code status: Full code Anticipated discharge place: Pending clinical course Anticipated discharge time: Pending clinical course Objective - Vital Signs Vital signs: Vital Signs Temp 97.7 F 12/14/23 07:58 Pulse 99 12/14/23 08:00 Resp 18 12/14/23 08:00 BP 170/84 12/14/23 07:58 Pulse Ox 96 12/14/23 07:58 FiO2 Intake & Output 12/13/23 12/14/23 12/14/23 18:59 06:59 18:59 Intake Total 240 240 Balance 240 240 Weight 72.575 kg Intake: Oral 240 240 Other: Voiding Method Toilet Toilet Toilet # Voids 1 2 - Labs CBC & Chem 7: 12/14/23 09:30 12/12/23 16:01
[2023-12-14 10:45] LABS: African American GFR (CKD) >90 (>60 ml/min/1.73 sqM); Anion Gap 7 mmol/L; Blood Urea Nitrogen 21 mg/dL (9-20); Calcium 9.2 mg/dL (8.4-10.2); Carbon Dioxide 24 mmol/L (22-30); Chloride 106 mmol/L (98-107); Glucose 138 mg/dL (74-99); Non-African American GFR(CKD) 79 (>60 ml/min/1.73 sqM); Potassium 4.1 mmol/L (3.5-5.1); Sodium 137 mmol/L (137-145)
[2023-12-14] MEDS: lisinopriL 10 MG TAB PO SCH (11:05)
[2023-12-14] MEDS: TAMSULOSIN 0.4 MG CAP.ER.24H PO SCH (11:05)
--- NOTE | 2023-12-14 11:54 | P.PN ---
Subjective Progress Note Date: 12/14/23 The patient is an 78-year-old male who was seen in neurologic follow-up on December 14, 2023, in collaboration with Savannah Mccormick, via teleneurology. The patient was seen in neurologic consultation yesterday, by Dr. Tobar. Please see his note for further details. This morning, the patient has been able to ambulate in the hallway without difficulty. He continues to feel some numbness and tingling in his right hand. He says his balance has been fine. He continues to have about 50% hearing loss in his left ear. The patient denies difficulty with speech and swallowing. He states that yesterday, he was having diplopia. This has resolved. The patient reports that his symptoms which brought him into the hospital are much worse than his usual symptoms associated with his Mnire's disease. CT scan of the brain is negative for acute infarct and hemorrhage. That imaging has been personally viewed. Objective - Vital Signs Vital signs: Vital Signs Temp 97.7 F 12/14/23 07:58 Pulse 99 12/14/23 08:00 Resp 18 12/14/23 08:00 BP 170/84 12/14/23 07:58 Pulse Ox 96 12/14/23 07:58 FiO2 Intake & Output 12/13/23 12/14/23 12/14/23 18:59 06:59 18:59 Intake Total 240 240 Balance 240 240 Weight 72.575 kg Intake: Oral 240 240 Other: Voiding Method Toilet Toilet Toilet # Voids 1 - Exam General: The patient is a is well-nourished well-developed and in no acute distress. HEENT: Head is atraumatic, normocephalic. Fundus not visualized. There is no scleral icterus. Neck: Supple without carotid bruits Heart: Regular rate and rhythm Neurological examination Mental status: The patient is awake, alert and oriented x 3. His speech is clear. There is no dysarthria or aphasia. Cranial nerves: Pupils are equal at 3 mm and reactive. Visual guillory are full to confrontation. Extraocular movements are intact. There is no nystagmus. Facial sensation is intact. There is no facial asymmetry. Hearing is diminished on the left. Uvula and palate are midline. Shoulder shrug is symmetric. Tongue protrudes midline. Coronation: Bilateral [id number] testing is intact. Rapid alternating movements and [id number]-vk-ocrs testing is intact. Gait: Within normal limits. There is no ataxia. - Labs CBC & Chem 7: 12/14/23 09:30 12/14/23 09:30 Labs: Abnormal Lab Results - Last 24 Hours (Table) 12/12/23 Range/Units 16:01 HDL Cholesterol 73.80 H (40.00-60.00) mg/dL Assessment and Plan Assessment: * 78-year-old male with history of Mnire's disease, presented with an episode of vertigo, cold sweats, imbalance and right hand and forearm numbness. Patient has history of baseline intermittent numbness of the right hand and distal forearm since he had undergone multiple forearm surgery in around 1997, but the numbness was more than usual, extending to the elbow. Rule out stroke/TIA. * Mnire's disease * Hypertension, recent onset * Hyperlipidemia * History of prediabetes Plan: MRI of the brain without contrast, evaluate for acute CVA-pending at this time. If MRI of the brain is negative, the patient is neurologically stable for discharge 2-D echo revealed normal left ventricular EF 55 to 60%. Mildly increased left ventricular mass. Mildly increased septal wall thickness. Mildly increased posterior wall thickness. No obvious regional wall motion abnormalities. Mildly increased left atrial volume. No significant valvular disease. CTA head and neck showed: No significant vascular abnormality. Fasting a.m. lipid panel with cholesterol 187, LDL 101, HDL 73, triglycerides 58. Patient was taking Zocor 20 mg daily at home. If any evidence of CVA, r ecommend increasing the dose of baseline statins. Permissive hypertension for next 24-48 hours Start aspirin 325 mg daily. Patient has stopped taking aspirin about a year ago. Time with Patient: Greater than 30 (40 minutes were spent caring for this patient today including, obtaining history, examining the patient, reviewing imaging, chart documentation, labs and creating this note)
[2023-12-14 15:35] VITALS: BP 101/65; PULSE 97
[2023-12-14] MEDS: ACETAMINOPHEN TAB 325 MG TAB PO PRN (15:49)
--- NOTE | 2023-12-14 16:47 | MR ---
EXAMINATION TYPE: MR brain wo/w con DATE OF EXAM: 12/14/2023 12:31 PM CLINICAL INDICATION:Male, 78 years old with history of Meniere's disease vs TIA; PHH, Vertigo, dizzin ess, menieres vs TIA. COMPARISON: 12/12/2023. TECHNIQUE: Multi planar, multi sequence imaging was performed through the brain including: T1, T2, In version recovery, susceptibility weighted imaging and gradient echo imaging and Diffusion weighted im aging. The patient was then given intravenous contrast and multi planar, T1 fat-saturation images wer e obtained. IV Contrast: 7.5 cc Gadavist FINDINGS: The nugent-white junctions, ventricular system, basal cisterns appear unremarkable. Diffusion-weighted imaging shows no evidence of restricted diffusion to suggest acute/subacute infarct. Intracranial ar terial flow voids are maintained. Midline structures show no abnormality. Scattered foci of high T2 s ignal intensity are seen within the periventricular white matter. The susceptibility weighted images do not reveal any evidence for micro-hemorrhage. After administration of gadolinium, no abnormal enha ncement is seen. The bone marrow signal is within normal limits. Paranasal sinuses and mastoid air cells: No significant paranasal sinus disease. Visualized orbits: Bilateral aphakia IMPRESSION: 1. No evidence of intracranial mass, acute/subacute infarct, or abnormal enhancement. 2. Nonspecific white matter changes, likely related to small vessel ischemic disease.
--- NOTE | 2023-12-14 18:29 | P.DS ---
Providers Date of admission: 12/12/23 17:26 Expected date of discharge: 12/14/23 Attending physician: Estuardo Mims MD Consults: 12/12/23 17:24 Consult Physician Routine Consulting Provider: Sean Tobar Consult Reason/Comments: vertigo Do you want consulting provider notified?: Yes Primary care physician: [facility] Hospital Course: Discharge Diagnoses: Worsening right arm numbness TIA History of Mnire's disease History of tinnitus Hypertensive urgency Urinary retention Suspected BPH Hospital Course: Patient is a very pleasant 78-year-old male with past medical history of hyperlipidemia and Mnire's disease. He presented to the emergency department on 12/12/2023 with a chief complaint of dizziness and near syncopal episode. Upon arrival to our facility, patient underwent evaluation in the emergency department. Vital signs upon arrival show blood pressure 173/97, heart rate 73, respiratory rate 18, and temp 97.8 F. Blood pressure elevated as high as 212/121 requiring IV administration of labetalol x 2 doses. EKG completed showing normal sinus rhythm at [address] head then completed negative for acute intracranial process. CTA head and neck completed negative for acute intracranial process. Labs completed and reviewed. CBC showing leukocytosis with WBC count of 10.8. Coagulation profile showed a low PTT of 20.4. BMP showing mild mild prerenal azotemia with BUN of 22 otherwise normal findings. Blood glucose 145. Lactic acid was 1.6. Magnesium was 2.0. Liver profile unremarkable. Troponin was negative at less than 0.012. Patient was admitted under our services with consultation to neurology. Troponins trended overnight all negative at less than 0.012 x 3 draws. Echocardiogram showed LVEF 55 to 60%, no regional wall motion abnormalities. MRI brain did not show any acute or subacute stroke. Patient to follow up with PCP and neurology outpatient. Physical Exam Vitals Signs Reviewed. General: Nontoxic, no distress, appears at stated age Derm: Warm, dry Head: Atraumatic, normocephalic, symmetric Eyes: EOMI, no lid lag, anicteric sclera Mouth: No lip lesion, mucus membranes moist Cardiovascular: S1S2 reg, no murmur Lungs: CTA bilateral, no rhonchi, no rales, no accessory muscle use Abdominal: Soft, nontender to palpation, no guarding, no appreciable or ganomegaly Ext: No gross muscle atrophy, no edema, no contractures Neuro: CN II-XI grossly intact, no focal neuro deficits Psych: Alert, oriented, appropriate affect This discharge process took 33 minutes in total. Patient was discharged on 12/14/23 at 1825. Patient Condition at Discharge: Stable Plan - Discharge Summary Discharge Rx Participant: No New Discharge Prescriptions: New amLODIPine [Norvasc] 5 mg PO DAILY #60 tab lisinopriL [Zestril] 10 mg PO DAILY #60 tab Aspirin 81 mg PO DAILY #60 tab Tamsulosin [Flomax] 0.4 mg PO PC-BRKFST #60 cap Continue Meclizine [Antivert] 12.5 mg PO TID PRN PRN Reason: Vertigo Timolol 0.5% Ophth Soln [Timoptic 0.5% Ophth Soln] 1 drop LEFT EYE BID Simvastatin [Zocor] 20 mg PO HS Discontinued Diclofenac Sodium [Voltaren] 50 mg PO HS Ibuprofen 800 mg PO Q8H PRN 10 Days #30 tab PRN Reason: Pain predniSONE [Deltasone] 60 mg PO DAILY Discharge Medication List Meclizine [Antivert] 12.5 mg PO TID PRN 12/12/23 [History] Simvastatin [Zocor] 20 mg PO HS 12/12/23 [History] Timolol 0.5% Ophth Soln [Timoptic 0.5% Ophth Soln] 1 drop LEFT EYE BID 12/12/23 [History] Aspirin 81 mg PO DAILY #60 tab 12/14/23 [Rx] Tamsulosin [Flomax] 0.4 mg PO PC-BRKFST #60 cap 12/14/23 [Rx] amLODIPine [Norvasc] 5 mg PO DAILY #60 tab 12/14/23 [Rx] lisinopriL [Zestril] 10 mg PO DAILY #60 tab 12/14/23 [Rx] Follow up Appointment(s)/Referral(s): [facility],Clinic [Primary Care Provider] - 1-2 days Lv Rodriguez MD [REFERRING] - 1 Week Patient Instructions/Handouts: Transient Ischemic Attack (DC) Activity/Diet/Wound Care/Special Instructions: Please see your PCP and also a neurologist. Discharge Disposition: HOME SELF-CARE
[2023-12-15] MEDS ORDERED: ASPIRIN 81 MG PO SCH (09:00)
== END 2023-12-14 18:46 | disposition home or self-care (01) ==
LOC: EC 15:39 → 3SCARD 17:26
PROVIDERS: ADMIT Internal Medicine; ATTEND Internal Medicine
DX: I16.1 Hypertensive emergency (principal); E86.0 Dehydration; D72.829 Elevated white blood cell count, unspecified; Z82.49 Family history of ischemic heart disease and other diseases of the circulatory system; Z79.899 Other long term (current) drug therapy; Z79.82 Long term (current) use of aspirin
CPT/HCPCS: 96376; 96372 ×3; 96374; 99285; 36415; 93005; 93306; 97161; 80061; 80053; 80048; 84443; 82607; 82746; 83605; 83735; 84100; 84484; 85025; 85027; 85610; 85730; 81003; 83036; 70496; 70450; 70498; 70553; G0378 ×3; J1644 ×2; Q9967; A9585; J1920